=== PATIENT | male | born 1955 | race Caucasian/White ===

== ENCOUNTER 2022-03-11 01:25 | Day surgery (SDC) | payer MEDICARE, SELFPAY ==
[2022-03-02 10:03] VITALS: BMI 27.6
[2022-03-11 08:40] VITALS: BP 144/87; PULSE 62; RESP 18; TEMP 36.3; O2SAT 99
[2022-03-11] MEDS: LACTATED RINGERS 1,000 ML 150 ML IV CONT (09:02)
--- NOTE | 2022-03-11 09:16 | P.HP_ITS ---
H&P: HPI History of Present Illness Date/Time: 03/11/22 09:16 Chief Complaint: Dysphagia Narrative: this is a 66-year-old white male patient presents for EGD. Patient has had several month history of nocturnal regurgitation. He notes substernal heartburn. Additionally his notice difficulty swallowing solid foods these will catch in the mid substernal portion the chest. Over last 3 weeks was started on omeprazole 20mg p.o. daily. With modest improvement of heartburn. Patient denies any weight loss or bleeding. Family history is noncontributory. Review of Systems Review of Systems: Review of systems noncontributory. [facility] Social History Social History Smoking status: Never smoker Alcohol intake: current Drinks per week: 7 Alcohol use details: BEER/LIQ Substance use: never Substance use type: does not use Living arrangements: with family Spiritual care concerns: No Meds Home Medications and Allergies Home Medications Medication Instructions Recorded Confirmed Type omeprazole 20 mg capsule,delayed 20 mg PO DAILY 03/02/22 03/11/22 History release Allergies Allergy/AdvReac Type Severity Reaction Status Date / Time No Known Allergies Allergy Verified 03/11/22 08:38 Vital Signs Vital Signs - 24 hr 03/11/22 08:40 Temperature 97.4 F L Pulse Rate 62 Respiratory Rate 18 Blood Pressure 144/87 H Pulse Oximetry 99 Oxygen Delivery Room Air Exam Narrative: Physical exam reveals patient to be alert. Vital signs stable. HEENT exam is unremarkable. Patient is anicteric. Lungs are clear to auscultation and percussion. Heart is without murmur or extra sounds. Abdomen bowel sounds are present soft nontender with no organomegaly. Digital external rectal exam normal. Assessment and Plan Assessment and plan (1) GERD (gastroesophageal reflux disease): Code(s): K21.9 - Gastro-esophageal reflux disease without esophagitis Status: Acute Assessment and Plan: Patient has nocturnal regurgitation consistent with acid reflux disease. Agree with omeprazole or similar PPI therapy likely will be required long-term. Anti-reflux measures including elevating head of bed at night, no late snacks bland foods are encouraged. Because of new onset EGD is recommended to evaluate this as well as his dysphagia. (2) Dysphagia: Code(s): R13.10 - Dysphagia, unspecified Status: Acute Assessment and Plan: Patient with difficulty swallowing. Consistent with soft a JUANA narrowing. Plan is for EGD to assess more thoroughly. Patient recently diagnosed with acid reflux disease. Likely this is associated. Further recommendations will be given after endoscopy. Hopefully dilatation can be performed.
--- NOTE | 2022-03-11 09:17 | WPDANESEPPF ---
Anes - Initial Pre Proc Eval Procedure: Operation Date: 03/11/22 09:30 Proposed Procedures p Esophagogastroduodenoscopy - Lio Peterson MD Date/Time: 03/11/22 09:17 Surgeon: Lio Peterson MD Pre Op Diagnosis: dyspepsia Patient Data Age: 66 Gender: M Height: 1.77 m Weight: 87.5 kg Last Vital Signs Temp 97.4 F L 03/11/22 08:40 Pulse 62 03/11/22 08:40 Resp 18 03/11/22 08:40 BP 144/87 H 03/11/22 08:40 Pulse Ox 99 03/11/22 08:40 O2 Del Method Room Air 03/11/22 08:40 Allergies Allergy/AdvReac Type Severity Reaction Status Date / Time No Known Allergies Allergy Verified 03/11/22 08:38 Home Medications Medication Instructions Recorded Confirmed Type omeprazole 20 mg capsule,delayed 20 mg PO DAILY 03/02/22 03/11/22 History release Patient hx anesthesia problems: none Family hx anesthesia problems: none Results Review: All pre-operative results and documents have been reviewed as part of the pre-operative evaluation. [facility] Social History Social History Smoking status: Never smoker Alcohol intake: current Drinks per week: 7 Alcohol use details: BEER/LIQ Substance use: never Substance use type: does not use Living arrangements: with family Spiritual care concerns: No Anes - Eval Final PreProcedure Day of Procedure 03/11/22 09:17 Patient weight: normal Heart: regular rate and rhythm Lungs: clear to auscultation Airway: Mallampati scale class II Neurological: alert and oriented Last oral intake: >/= 8 hours ASA classification: II Emergent: no Anesthetic plan: proceed Anesthesia type and monitoring: general GIVS and standard monitoring Results Review: All pre-operative results and documents have been reviewed as part of the pre-operative evaluation. Informed Consent: The patient's anesthetic plan and its attendant risks and benefits were discussed with the patient/family/POA. Questions were solicited and answers provided to the satisfaction of the patient/family/POA.
[2022-03-11 09:39] VITALS: BP 138/75; PULSE 60; RESP 17; O2SAT 98
[2022-03-11 09:49] VITALS: BP 146/90; PULSE 61; RESP 25; O2SAT 99
[2022-03-11 09:59] VITALS: BP 169/91; PULSE 60; RESP 17; O2SAT 99
== END 2022-03-11 10:11 | disposition home or self-care (01) ==
PROVIDERS: Visit Provider Internal Medicine Gastroenterology
PROC: 0DJ08ZZ Inspection of Upper Intestinal Tract, Via Natural or Artificial Opening Endoscopic (ICD-10-PCS; CPT 43235; principal; 2022-03-11 09:30)
DX: R13.19 Other dysphagia (principal); R12 Heartburn; Q39.4 Esophageal web; K21.9 Gastro-esophageal reflux disease without esophagitis; R10.13 Epigastric pain
CPT/HCPCS: 43450; 43235; J2704; J7120